=== PATIENT | male | born 1980 | race Caucasian/White ===

== ENCOUNTER → 2019-04-20 | Outpatient (CLI) | payer BC ==
--- NOTE | 2019-04-20 14:50 | RAD ---
3 views the right shoulder without comparison for pain for one year, no known injury. FINDINGS: There is no fracture, dislocation, or acute osseous abnormality identified. Joints and soft tissues are grossly unremarkable. No pathologic calcifications are seen. IMPRESSION: 1. No radiographically evident osseous abnormality. Electronically signed by: Syd Bello MD (04/20/2019 2:47 PM) [id number]
== END | disposition home or self-care (01) ==
LOC: DXRAD 10:27
PROVIDERS: ATTEND Nurse Practitioner Adult Health
DX: M25.511 Pain in right shoulder (principal)
CPT/HCPCS: 73030